=== PATIENT | female | born 1990 | race African-American/Black ===

== ENCOUNTER 2022-09-22 09:34 | Emergency (ER) | payer MEDICAID, OTHER ==
[~2022-09-22] VITALS: Ht 157.5 cm; Wt 90.7 kg
[2022-09-22] MEDS ORDERED: HYDR-4209 PO (09:48)
[2022-09-22] MEDS ORDERED: AMOX-430 PO ×2 (09:48→10:02)
[2022-09-22] MEDS ORDERED: HYDR-3980 PO (09:55)
[2022-09-22] MEDS ORDERED: HYDROCODONE/APAP 5-325MG TABLET PO ONE (10:00)
[2022-09-22] MEDS ORDERED: HYDROCODONE/APAP 5-325MG TABLET ONE (10:01)
--- NOTE | 2022-09-22 10:07 | NUR ---
Patient discharged to home in stable condition. Written and verbal after care instructions given. Patient verbalizes understanding of instructions. Stressed follow up or return to ER for worsening s/s.
== END 2022-09-22 10:07 | disposition home or self-care (01) ==
LOC: ER 09:34
DX: H66.91 Otitis media, unspecified, right ear (principal); Z79.2 Long term (current) use of antibiotics; Z79.899 Other long term (current) drug therapy
CPT/HCPCS: A4663